=== PATIENT | male | born 1995 | race Caucasian/White ===

== ENCOUNTER 2022-11-06 08:55 | Emergency (ER) | payer MEDICAID ==
[~2022-11-06] VITALS: Ht 170.2 cm; Wt 70.0 kg
[2022-11-06 09:21] VITALS: BP 149/81
[2022-11-06 12:14] LABS: BASOPHILS % 0.3 % (0.0-2.0); EOSINOPHILS % 0.6 % (0.0-5.0); HEMATOCRIT. 48.2 % (42.0-52.0); HEMOGLOBIN. 16.6 g/dL (14.0-18.0); MEAN CORPUSCULAR HEMOGLOBIN 31.2 pg (28.0-32.0); MEAN CORPUSCULAR VOLUME 90.4 fL (80.0-94.0); MEAN PLATELET VOLUME 8.4 fl (7.4-10.4); MONOCYTES % 8.7 % (2.0-8.0); NEUTROPHILS % 67.4 % (40.0-76.0); PLATELET 308 x1000/uL (130-400); RED BLOOD CELL COUNT 5.33 mill/uL (4.7-6.1); RED CELL DISTRIBUTION WIDTH 13.4 % (11.6-14.6)
[2022-11-06 12:16] LABS: CHLORIDE 106 mEq/L (98-107)
[2022-11-06] MEDS ORDERED: SUCR1TAB30 MT (14:12)
[2022-11-06] MEDS ORDERED: OMEP10CA5 MT (14:12)
[2022-11-06 14:48] LABS: CLARITY URINE CLEAR (CLEAR); COLOR URINE YELLOW (YELLOW); KETONES URINE NEGATIVE (NEGATIVE); LEUKOCYTE ESTERASE URINE NEGATIVE (NEGATIVE); NITRITE URINE NEGATIVE (NEGATIVE); OCCULT BLOOD URINE NEGATIVE (NEGATIVE); PH URINE 6.5 (4.5-8.0); PROTEIN URINE NEGATIVE (NEGATIVE); SPECIFIC GRAVITY URINE 1.017 (1.005-1.030); UROBILINOGEN URINE 0.2 E.U./dL (0.2-1.0)
== END 2022-11-06 14:58 | disposition home or self-care (01) ==
LOC: ER 09:29
DX: R10.13 Epigastric pain (principal); K29.00 Acute gastritis without bleeding; K21.9 Gastro-esophageal reflux disease without esophagitis
CPT/HCPCS: 36415; 80053; 81003; 85025; 99283

== ENCOUNTER 2024-05-12 17:02 | Emergency (ER) | payer SELFPAY ==
[~2024-05-12] VITALS: Ht 165.1 cm; Wt 81.6 kg
[~2024-05-12 17:02] MED LIST: OMEP10CA5 MT; SUCR1TAB30 MT
[2024-05-12 17:15] VITALS: BP 165/92; PULSE 78; RESP 16; TEMP 98.5; O2SAT 99
[2024-05-12 17:48] LABS: BASOPHILS % 0.4 % (0.0-2.0); EOSINOPHILS % 0.9 % (0.0-5.0); HEMATOCRIT. 45.9 % (42.0-52.0); HEMOGLOBIN. 15.3 g/dL (14.0-18.0); LYMPHOCYTES % 34.4 % (20.0-50.0); MEAN CORPUSCULAR HEMOGLOBIN 30.6 pg (28.0-32.0); MEAN CORPUSCULAR HGB CONC 33.4 g/dL (31.0-37.0); MEAN CORPUSCULAR VOLUME 91.6 fL (80.0-94.0); MEAN PLATELET VOLUME 8.4 fl (7.4-10.4); MONOCYTES % 8.1 % (2.0-8.0); NEUTROPHILS % 56.2 % (40.0-76.0); PLATELET 320 x1000/uL (130-400); RED BLOOD CELL COUNT 5.01 mill/uL (4.7-6.1); RED CELL DISTRIBUTION WIDTH 13.6 % (11.6-14.6); WHITE BLOOD COUNT 12.4 x1000/uL (4.5-11.0)
[2024-05-12 17:53] LABS: CARBON DIOXIDE 27 mEq/L (21-32); CHLORIDE 103 mEq/L (98-107); POTASSIUM 3.3 mEq/L (3.5-5.1); SODIUM 138 mEq/L (136-145)
[2024-05-12 17:54] LABS: CALCIUM 9.6 mg/dL (8.7-10.4)
[2024-05-12 17:58] LABS: CREATININE 0.9 mg/dL (0.6-1.3)
[2024-05-12 17:59] LABS: GLUCOSE 121 mg/dL (70-105); UREA NITROGEN BLOOD 12 mg/dL (9-23)
[2024-05-12 18:00] LABS: ALANINE AMINOTRANSFERASE 72 IU/L (10-49); ASPARTATE AMINOTRANSFERASE 33 IU/L (<34)
[2024-05-12 18:01] LABS: ALBUMIN 5.1 g/dL (3.2-4.8); BILIRUBIN DIRECT 0.2 mg/dL (<=3.0); BILIRUBIN TOTAL 0.7 mg/dL (0.1-1.0); PROTEIN TOTAL 7.5 g/dL (6.0-8.3)
== END 2024-05-12 18:00 | disposition left against medical advice (07) ==
LOC: ER 17:02
DX: R10.9 Unspecified abdominal pain (principal); Z53.21 Procedure and treatment not carried out due to patient leaving prior to being seen by health care provider
CPT/HCPCS: 36415; 80048; 80076; 85025; 86850; 86900